=== PATIENT | female | born 1960 | race African-American/Black ===

== ENCOUNTER → 2020-10-27 | Outpatient (CLI) | payer MEDICAID, OTHER ==
[2016-05-19 22:22] VITALS: BP 177/85
[~2020-10-27] MED LIST: AMLO-311 PO; CLIN150C15 PO; GLIM2TAB7 PO; HYDR-3164; HYDR-3164 PO; LOSA1TAB19 PO; SITA100T PO; [UNRECOGNIZED DRUG - CODE]; [UNRECOGNIZED DRUG - CODE]
--- NOTE | 2020-10-27 13:47 | RAD ---
EXAM: Pelvic sonogram. HISTORY: Post menopausal bleeding. TECHNIQUE: Sonographic imaging of the pelvis was performed. COMPARISON: None. FINDINGS: The uterus measures 9.9 x 6.3 x 5.9 cm. The endometrial stripe is thickened for the postmen opausal status of the patient, measuring 11 mm. The ovaries are not seen due to patient body habitus. Transvaginal imaging was suboptimal due to prolapse. There is no pelvic free fluid. No adnexal cyst or mass is seen. IMPRESSION: 1. Thickened endometrial stripe for the postmenopausal status the patient. Tissues abdomen may be ind icated for definitive diagnosis. 2. Obscured ovaries. Electronically signed by: Felicity Medrano MD (10/27/2020 1:44 PM) [id number]
== END ==
LOC: US 12:26
PROVIDERS: ATTEND Obstetrics & Gynecology
DX: N95.0 Postmenopausal bleeding (principal)
CPT/HCPCS: 76856

== ENCOUNTER 2021-03-29 18:03 | Emergency (ER) | payer OTHER ==
[~2021-03-29] VITALS: Ht 172.7 cm; Wt 122.0 kg
[~2021-03-29 18:03] MED LIST changes: -CLIN150C15 PO; +CLIN150C16 PO
[2021-03-29 19:19] VITALS: BP 194/97
--- NOTE | 2021-03-29 20:04 | PHYS DOC ---
Past Medical History Past Medical History: Diabetes-Type II, Hypertension Additional Past Medical Histor: MEDICATION NON-COMPLIANCE Past Surgical History: Other Additional Past Surgical Histo: D&C Smoking Status: Never Smoker Alcohol Use: None Drug Use: None General Adult EDM: Chief Complaint: VAGINAL BLEEDING HPI: HPI: Patient is a 60 year old female who presents with intermittent vaginal bleeding that is heavy at times with clots for the last year. She went and saw Dr. Sol Kay finisher card tender 3 months ago and was told that she needs a hysterectomy and/or capping. Patient states she has intermittent lower abdominal pain but no pain today. Patient denies dizziness, headache, syncope, numbness or tingling, shortness of breath, chest pain, palpitations, nausea, v omiting, diarrhea. Patient has a history of hypertension, diabetes, D&C, noncompliance. Review of Systems: Review of Systems: Constitutional: Denies fever or chills. [] Eyes: Denies change in visual acuity. [] HENT: Denies nasal congestion or sore throat. [] Respiratory: Denies cough or shortness of breath. [] Cardiovascular: Denies chest pain or edema. [] GI: Denies abdominal pain, nausea, vomiting, bloody stools or diarrhea. [] : Denies dysuria. +vaginal bleeding[] Musculoskeletal: Denies back pain or joint pain. [] Integument: Denies rash. [] Neurologic: Denies headache, focal weakness or sensory changes. [] Endocrine: Denies polyuria or polydipsia. [] Lymphatic: Denies swollen glands. [] Psychiatric: Denies depression or anxiety. [] Heart Score: C/O Chest Pain: No Risk Factors: Risk Factors: DM, Current or recent (<one month) smoker, HTN, HLP, family history of CAD, obesity. Risk Scores: Score 0 - 3: 2.5% MACE over next 6 weeks - Discharge Home Score 4 - 6: 20.3% MACE over next 6 weeks - Admit for Clinical Observation Score 7 - 10: 72.7% MACE over next 6 weeks - Early Invasive Strategies Allergies: Allergies: Allergies Coded Allergies Type Severity Reaction Last Updated Verified No Known Drug Allergies 10/01/13 No Physical Exam: PE: Constitutional: Well developed, well nourished, no acute distress, non-toxic appearance. [] HENT: Normocephalic, atraumatic, bilateral external ears normal, oropharynx moist, no oral exudates, nose normal. [] Eyes: PERRLA, EOMI, conjunctiva normal, no discharge. [] Neck: Normal range of motion, no tenderness, supple, no stridor. [] Cardiovascular:Heart rate regular rhythm, no murmur [] Lungs & Thorax: Bilateral breath sounds clear to auscultation [] Abdomen: Bowel sounds normal, soft, no tenderness, no masses, no pulsatile masses. [] Skin: Warm, dry, no erythema, no rash. [] Back: No tenderness, no CVA tenderness. [] Extremities: No tenderness, no cyanosis, no clubbing, ROM intact, no edema. [] Neurologic: Alert and oriented X 3, normal motor function, normal sensory function, no focal deficits noted. [] Psychologic: Affect normal, judgement normal, mood normal. [] Normal Physical Exam Current Patient Data: Vital Signs: Vital Signs Date Time Temp Pulse Resp B/P (MAP) Pulse Ox O2 Delivery O2 Flow Rate FiO2 03/29/21 19:19 95.5 94 17 194/97 (115) 95 Room Air 95.5 EKG: EKG: [] Radiology/Procedures: Radiology/Procedures: [] Impression: [facility] [address] [place] [address] IMAGING REPORT Signed PATIENT: GLORIA MILLER ACCOUNT: [id number] : 1960 LOCATION: ER AGE: 60 SEX: F EXAM STATUS: REG ER ORD. PHYSICIAN: NADEEN ROBERTO APRN REASON: heavy vaginal bleeding PROCEDURE: PELVIS COMPLETE US PELVIS COMPLETE History: Heavy vaginal bleeding. Postmenopausal. Comparison: 10/27/2020 Technique: Sonographic examination of the pelvis was performed with transabdominal technique. Findings: Uterus- Uterine parenchyma: Homogeneous without fibroids. Uterine measurements: 13.1 x 6.2 x 6.2 Cervix: Unremarkable. Endometrium- Endometrial Stripe: Thickened endometrial stripe without focal lesion identified. Evaluation is limited by transabdominal technique. Thickness: 14 mm. Adnexa- Right Ovary: Identified and appears normal. Size: 3.1 x 1.9 x 2.6 cm Doppler: Normal. Left Ovary: Identified and appears normal. Size: 5 x 3.1 x 2.1 cm Doppler: Normal. Mass: No abnormal adnexal masses. Fluid: No abnormal free fluid in the pelvis. Additional findings: None. Impression: 1. Thickened endometrium measuring 14 mm without focal lesion identified. In the setting of postmenopausal bleeding, endometrial tissue sampling is recommended. Electronically signed by: Nir Mclean MD (03/29/2021 8:47 PM) [facility] DICTATED and SIGNED BY: NIR MCLEAN MD DATE: 03/29/[id number] 0 Course & Med Decision Making: Course & Med Decision Making Pertinent Labs and Imaging studies reviewed. (See chart for details) See HPI. Alert and oriented x4. Ambulatory with a steady gait. Speaks in full clear sentences. Abdomen soft and nontender. Afebrile. Blood work unremarkable. US showed no acute findings and the patient is not post menopausal. Patient is stable and in no distress. [] Dragon Disclaimer: Dragon Disclaimer: This electronic medical record was generated, in whole or in part, using a voice recognition dictation system. Departure Departure Impression: Primary Impression: Vaginal bleeding Disposition: HOME / SELF CARE / HOMELESS Condition: STABLE Referrals: PHILIPP THOMPSON MD (PCP) Patient Instructions: Dysmenorrhea Additional Instructions: Go back to Dr Kay as soon as possible. Take all your medications as prescribed. If you become dizzy, have severe chest pian or shortness of breath return to the Emergency room. NADEEN ROBERTO APRN Mar 29, 2021 20:04
[2021-03-29 20:43] LABS: BASO % 0 % (0-3); EOS # 0.1 x10^3/uL (0.0-0.7); EOS % 1 % (0-3); HEMATOCRIT 33.5 % (36.0-47.0); LYMPH # 2.2 x10^3/uL (1.0-4.8); LYMPH % 31 % (24-48); MEAN CORPUSCULAR HEMOGLOBIN 29 pg (25-35); MEAN CORPUSCULAR HGB CONC 33 g/dL (31-37); MEAN CORPUSCULAR VOLUME 89 fL (79-100); MONO # 0.7 x10^3/uL (0.0-1.1); MONO % 10 % (0-9); NEUT # 4.3 x10^3/uL (1.8-7.7); NEUT % 59 % (31-73); PLATELET COUNT 215 x10^3/uL (140-400); RED BLOOD COUNT 3.74 x10^6/uL (3.50-5.40); RED CELL DISTRIBUTION WIDTH 15.3 % (11.5-14.5); WHITE BLOOD COUNT 7.3 x10^3/uL (4.0-11.0)
--- NOTE | 2021-03-29 20:50 | RAD ---
US PELVIS COMPLETE History: Heavy vaginal bleeding. Postmenopausal. Comparison: 10/27/2020 Technique: Sonographic examination of the pelvis was performed with transabdominal technique. Findings: Uterus- Uterine parenchyma: Homogeneous without fibroids. Uterine measurements: 13.1 x 6.2 x 6.2 Cervix: Unremarkable. Endometrium- Endometrial Stripe: Thickened endometrial stripe without focal lesion identified. Evaluation is limit ed by transabdominal technique. Thickness: 14 mm. Adnexa- Right Ovary: Identified and appears normal. Size: 3.1 x 1.9 x 2.6 cm Doppler: Normal. Left Ovary: Identified and appears normal. Size: 5 x 3.1 x 2.1 cm Doppler: Normal. Mass: No abnormal adnexal masses. Fluid: No abnormal free fluid in the pelvis. Additional findings: None. Impression: 1. Thickened endometrium measuring 14 mm without focal lesion identified. In the setting of postmeno pausal bleeding, endometrial tissue sampling is recommended. Electronically signed by: Nir Ochoa MD (03/29/2021 8:47 PM) [facility]
[2021-03-29 20:53] LABS: CREATININE 1.2 mg/dL (0.6-1.0); GFR 55.6; POTASSIUM 3.9 mmol/L (3.5-5.1)
[2021-03-29 20:54] LABS: BILIRUBIN,URINE NEGATIVE (NEG); CLARITY,URINE CLEAR; COLOR,URINE YELLOW; NITRITE,URINE NEGATIVE (NEG); PH,URINE 5.5 (<5.0-8.0); PROTEIN,URINE NEGATIVE (NEG-TRACE)
[2021-03-29 20:58] LABS: ALBUMIN 3.3 g/dL (3.4-5.0); ALBUMIN/GLOBULIN RATIO 0.7 (1.0-1.7); TOTAL BILIRUBIN 0.2 mg/dL (0.2-1.0); TOTAL PROTEIN 7.8 g/dL (6.4-8.2)
[2021-03-29 21:00] LABS: BACTERIA,URINE FEW /HPF (0-FEW); RBC,URINE 20-40 /HPF (0-2)
== END 2021-03-29 21:18 | disposition home or self-care (01) ==
LOC: ER 18:03
DX: N93.9 Abnormal uterine and vaginal bleeding, unspecified (principal); E11.9 Type 2 diabetes mellitus without complications; I10 Essential (primary) hypertension
CPT/HCPCS: 36415; 76856; 80053; 81001; 85025; 99284-25

== ENCOUNTER → 2021-09-29 | Outpatient (CLI) | payer OTHER ==
[2021-09-27 20:25] VITALS: BP 156/70
[~2021-09-29] MED LIST changes: +DULA1.5P SQ; +METF10007 PO
--- NOTE | 2021-09-29 14:48 | EKG ---
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
--- NOTE | 2021-09-29 15:09 | RAD ---
EXAM: Chest, 2 views. HISTORY: Preoperative evaluation. COMPARISON: None. FINDINGS: 2 views of the chest are obtained. There is no infiltrate, pleural effusion or pneumothorax . The heart is normal in size. IMPRESSION: No acute pulmonary finding. Electronically signed by: Felicity Medrano MD (09/29/2021 3:06 PM) [id number]
== END ==
LOC: SURGPAT 14:07
PROVIDERS: ATTEND Obstetrics & Gynecology
DX: Z01.818 Encounter for other preprocedural examination (principal); I10 Essential (primary) hypertension; E11.9 Type 2 diabetes mellitus without complications; Z20.822 Contact with and (suspected) exposure to COVID-19
CPT/HCPCS: 71046; 93005

== ENCOUNTER 2021-10-04 06:04 | Day surgery (SDC) | payer OTHER ==
[2021-09-29 14:51] VITALS: BP 171/78
[~2021-10-04] VITALS: Ht 172.7 cm; Wt 122.7 kg
[~2021-10-04 06:04] MED LIST changes: -DULA1.5P SQ; +HYDROmorphone 2 MG/ML INJ. IVP PRN; +IV RINGERS,LACTATED 1000ML 1,000 ML IV SCH; -METF10007 PO; +MORPHINE SULFATE 2 MG/ML INJ. IVP PRN; +PROCHLORPERAZINE 10 MG/2 ML VIAL. IVP PRN; +fentaNYL PF VIAL 100 MCG/2 ML VIAL IVP PRN
[2021-10-04 06:29] VITALS: BP 189/90
[2021-10-04] MEDS ORDERED: METF10007 PO (06:37)
[2021-10-04] MEDS ORDERED: DULA1.5P SQ (06:39)
[2021-10-04] MEDS ORDERED: INSULIN LISPRO 100 UNIT/ML 3ML VIAL for OP,RR ONLY. SQ PRN (06:45)
[2021-10-04] MEDS ORDERED: DEXAMETHASONE SOD PHOS 4 MG/ML VIAL ONE (06:59)
[2021-10-04] MEDS ORDERED: LIDOCAINE 2% PF 5 ML VIAL. ONE (06:59)
[2021-10-04] MEDS ORDERED: PROPOFOL 10 MG/ML (20ML) VIAL. IV ONE ×2 (06:59→07:58)
[2021-10-04] MEDS ORDERED: ONDANSETRON PF 4 MG/2 ML VIAL. ONE (06:59)
[2021-10-04] MEDS ORDERED: fentaNYL PF VIAL 100 MCG/2 ML VIAL ONE (07:00)
[2021-10-04 07:06] LABS: BASO % 0 % (0-3); EOS # 0.2 x10^3/uL (0.0-0.7); EOS % 2 % (0-3); HEMATOCRIT 26.1 % (36.0-47.0); HEMOGLOBIN 8.2 g/dL (12.0-15.5); LYMPH # 2.3 x10^3/uL (1.0-4.8); LYMPH % 27 % (24-48); MEAN CORPUSCULAR HEMOGLOBIN 28 pg (25-35); MEAN CORPUSCULAR HGB CONC 31 g/dL (31-37); MEAN CORPUSCULAR VOLUME 89 fL (79-100); MONO # 0.7 x10^3/uL (0.0-1.1); MONO % 8 % (0-9); NEUT # 5.4 x10^3/uL (1.8-7.7); NEUT % 63 % (31-73); PLATELET COUNT 265 x10^3/uL (140-400); RED BLOOD COUNT 2.96 x10^6/uL (3.50-5.40); RED CELL DISTRIBUTION WIDTH 17.2 % (11.5-14.5); WHITE BLOOD COUNT 8.6 x10^3/uL (4.0-11.0)
[2021-10-04] MEDS ORDERED: PHENYLEPHRINE in 0.9% NACL PF 1 MG/10 ML SYRINGE. IV ONE (08:21)
[2021-10-04] MEDS ORDERED: NALOXONE 0.4 MG/ML VIAL. IV PRN (09:00)
[2021-10-04] MEDS ORDERED: HYDROcodone/APAP 5/325MG 1 TAB TABLET PO PRN (09:00)
[2021-10-04] MEDS ORDERED: MAG HYDROX/ALUMINUM HYD/SIMETH 30 ML ORAL.SUSP PO PRN (09:00)
[2021-10-04] MEDS ORDERED: diphenhydrAMINE 50 MG/ML VIAL IV PRN (09:00)
[2021-10-04] MEDS ORDERED: 0.9 % SODIUM CHLORIDE 10 ML DISP.SYRIN. IV PRN (09:00)
[2021-10-04] MEDS ORDERED: diphenhydrAMINE HCL 25 MG CAPSULE PO PRN (09:00)
[2021-10-04] MEDS ORDERED: SIMETHICONE 80 MG TAB.CHEW PO PRN (09:00)
[2021-10-04] MEDS ORDERED: CALCIUM CARBONATE 500 MG TAB.CHEW PO PRN (09:00)
[2021-10-04] MEDS ORDERED: SEVOFLURANE 31 TO 60 MINUTES. IH ONE (09:01)
--- NOTE | 2021-10-04 09:11 | PDOC4 ---
BRIEF OPERATIVE NOTE Date: Oct 04, 2021 Pre-Op Diagnosis PMB, endometrial thickening, iron def anemia Post-Op Diagnosis same Procedure Performed h/s D&C with myosure Surgeon Dr. Ling Anesthesiologist Dr. Mckee Anesthesia Type: General Blood Loss 10cc IV Fluid see anesthesia records Urine Output straight cath prior, see notes Specimens Obtained uterine currettings Findings complete uterine prolapse; already dilated with some bleeding present; uterus sounded to 13cm, abundant tissue seen 6min 11 seconds cut time with myosure no complications Complications none Operative Note [id number] JOSÉ LING MD Oct 04, 2021 09:11
[2021-10-04] MEDS ORDERED: PROCHLORPERAZINE 10 MG/2 ML VIAL. ONE (09:54)
[2021-10-04 10:52] VITALS: BP 125/61
--- NOTE | 2021-10-04 14:18 | OP ---
DATE OF SURGERY: 10/04/2021 PREOPERATIVE DIAGNOSES: This is a 61-year-old -[place] female who presented to my office with dysfunctional bleeding in a postmenopausal state, endometrial thickening seen on sonogram and iron deficiency anemia. POSTOPERATIVE DIAGNOSES: This is a 61-year-old -[place] female who presented to my office with dysfunctional bleeding in a postmenopausal state, endometrial thickening seen on sonogram and iron deficiency anemia. PROCEDURE: Hysteroscopy, D and C with MyoSure fluid collection system. SURGEON: Dr. Sol Kay. ANALYTICS DEVELOPER: OR personnel. ANESTHESIOLOGIST: Dr. Mckee. ANESTHESIA: General. BLOOD LOSS: 10 mL. URINE OUTPUT: With a straight cath prior to procedure, I believe it was 200, but please see OR records. IV FLUIDS: Please see anesthesia records. SPECIMEN: Uterine curettings. FINDINGS: She had complete uterine prolapse, already dilated with some bleeding present. Uterus that sounded to 13 cm, abundant tissue seen on hysteroscopy. Cut time was 6 minutes and 11 seconds with the MyoSure. COMPLICATIONS: None. OTHER THINGS: This patient has a high medical history of severely uncontrolled diabetes with a very elevated A1c sugars in the 400-500, elevated creatinine, low GFR as well and had to get medical clearance and is still very high risk for surgery. DESCRIPTION OF PROCEDURE: This patient was taken to the operating room where general anesthesia was placed. The [facility] The patient's vagina was prepped and draped in the normal sterile fashion and a straight cath urine was done prior to my arrival. Upon my arrival, a timeout was performed. Once everyone agreed on the patient, the site, the procedure, the MyoSure scope was primed. Once it passed the prime and re-zeroed, it was placed in with the above findings. We had to get another tenaculum to close off the cervix because we were losing fluid all over the floor and all over me, not in the bag. It was just bring out her dilated cervix. Because when I got in there, it went everywhere. The weighted speculum was placed in the patient's vagina. A single-tooth tenaculum was used to grasp the anterior lip of the cervix. I started with a 3-4 Hegar, they slid in and 5-6 slid in. She sounded to over 13, the scope was placed in with the above findings. Again, I used a tenaculum below the scope to close it off and help maintain some of the pressure. The pressure was set at 80, I believe at one point, we went up to 100 just to get good visualization, especially with some of the fluid loss through a dilated cervix. She actually had a fairly normal-appearing uterine cavity. I did not see any overt fibroids or anything, but she just had abundant white fluffy tissue everywhere, so I did a curetting for 6 minutes and 11 seconds and got quite a bit of tissue removed through the MyoSure once we put in the MyoSure through the operating channel of the hysteroscope and did a curetting under direct visualization. Once this was done, there was no active bleeding seen. The procedure was ended. The tenaculums were removed. There was no active bleeding. A weighted speculum and the right angle Mikayla were removed. No active bleeding. The patient was then awakened from anesthesia and brought to recovery room in stable condition. KINGSLEY/ALEX DR: Sarabjit TID: [id number]
== END 2021-10-04 12:10 | disposition home or self-care (01) ==
LOC: SURG 06:04
PROVIDERS: ATTEND Obstetrics & Gynecology
DX: R93.89 Abnormal findings on diagnostic imaging of other specified body structures (principal); D50.9 Iron deficiency anemia, unspecified; N93.8 Other specified abnormal uterine and vaginal bleeding; I10 Essential (primary) hypertension; E11.9 Type 2 diabetes mellitus without complications; Z98.890 Other specified postprocedural states; Z79.899 Other long term (current) drug therapy; Z79.84 Long term (current) use of oral hypoglycemic drugs; Z88.8 Allergy status to other drugs, medicaments and biological substances; Z87.891 Personal history of nicotine dependence
CPT/HCPCS: 36415; 58558; 82962; 85025; J0780; J1100; J2370; J2405; J2704; J3010; A4930